=== PATIENT | female | born 1990 | race Hispanic/Latino ===

== ENCOUNTER 2020-03-13 19:30 | Emergency (ER) | payer SELFPAY ==
[~2020-03-13] VITALS: Ht 175.3 cm; Wt 74.8 kg
[2020-03-13] MEDS ORDERED: ACETAMINOPHEN 325 MG TAB PO ONE (20:15)
[2020-03-13] MEDS ORDERED: KETOROLAC TROMETHAMINE 30 MG/ML VIAL IV ONE (20:15)
[2020-03-13] MEDS ORDERED: DEXAMETHASONE SOD PHOS 10 MG/1 ML VIAL IV ONE (20:15)
[2020-03-13] MEDS ORDERED: ONDANSETRON HCL INJ 2MG/ML 2ML 2 MG/ML VIAL IV ONE (20:15)
[2020-03-13] MEDS ORDERED: SODIUM CHLORIDE 0.9% 1000ML 1,000 ML IV STA (20:15)
[2020-03-13] MEDS ORDERED: THERAFLU MS SE1 EACH PO (21:07)
[2020-03-13] MEDS ORDERED: ZOLPIDEM TARTRAT5 MG PO (21:07)
[2020-03-13] MEDS ORDERED: PROMETHAZINE HC25 M1 PO (21:07)
[2020-03-13] MEDS ORDERED: ONDANSETRON HCL INJ 2MG/ML 2ML 2 MG/ML VIAL ONE (21:14)
[2020-03-13] MEDS ORDERED: SODIUM CHLORIDE 0.9% 1000ML 1,000 ML ONE (21:14)
[2020-03-13] MEDS ORDERED: ACETAMINOPHEN 325 MG TAB ONE (21:14)
[2020-03-13] MEDS ORDERED: DEXAMETHASONE SOD PHOS INJ 4 MG/ML VIAL ONE (21:14)
[2020-03-13] MEDS ORDERED: KETOROLAC TROMETHAMINE 30 MG/ML VIAL ONE (21:14)
[2020-03-13] MEDS ORDERED: DIPHENHYDRAMINE HCL INJ 50 MG/ML VIAL IV ONE (22:00)
[2020-03-13] MEDS ORDERED: METOCLOPRAMIDE HCL 10 MG/2ML VIAL IV ONE (22:00)
[2020-03-13] MEDS ORDERED: DIPHENHYDRAMINE HCL INJ 50 MG/ML VIAL ONE (22:17)
[2020-03-13] MEDS ORDERED: METOCLOPRAMIDE HCL 10 MG/2ML VIAL ONE (22:17)
== END 2020-03-13 23:05 | disposition home or self-care (01) ==
LOC: FSED 20:00
DX: R51.9 Headache, unspecified (principal); B34.9 Viral infection, unspecified; R50.9 Fever, unspecified
CPT/HCPCS: 36415; 70450; 80053; 83518; 85025; 85651; 99283; J1100; J1200; J1885; J2405; J2765; J7030

== ENCOUNTER 2020-03-15 14:32 | Emergency (ER) | payer SELFPAY ==
[~2020-03-15] VITALS: Ht 175.3 cm; Wt 74.8 kg
[~2020-03-15 14:32] MED LIST: PROMETHAZINE HC25 M1 PO; THERAFLU MS SE1 EACH PO; ZOLPIDEM TARTRAT5 MG PO
[2020-03-15] MEDS ORDERED: CEFTRIAXONE SOD 1 GM VIAL IM ONE (14:45)
[2020-03-15] MEDS ORDERED: AUGMENTIN 875-1 EACH PO (14:55)
[2020-03-15] MEDS ORDERED: LIDOCAINE HCL 1% LOCAL INJ 20 ML VIAL ONE (14:56)
== END 2020-03-15 15:12 | disposition home or self-care (01) ==
LOC: FSED 14:45
DX: R51.9 Headache, unspecified (principal); H66.93 Otitis media, unspecified, bilateral; B34.9 Viral infection, unspecified
CPT/HCPCS: 99283; J0696; J2001

== ENCOUNTER 2020-03-15 20:21 | Emergency (ER) | payer SELFPAY ==
[~2020-03-15] VITALS: Ht 175.3 cm; Wt 74.8 kg
[~2020-03-15 20:21] MED LIST changes: +AUGMENTIN 875-1 EACH PO
[2020-03-15] MEDS ORDERED: SODIUM CHLORIDE 0.9% 1000ML 1,000 ML IV STA ×2 (20:29→20:31)
[2020-03-15] MEDS ORDERED: ASPIRIN 81 MG CHEW TAB PO ONE (20:30)
[2020-03-15] MEDS ORDERED: ACETAMINOPHEN 325 MG TAB PO STA (20:38)
[2020-03-15 20:58] LABS: BASOPHILS % 0.5 % (0.0-1.0); EOSINOPHILS % 0.6 % (0.0-6.0); HEMATOCRIT 36.6 % (34.2-44.1); LYMPHOCYTES # (AUTO) 2.9 (1.0-3.2); LYMPHOCYTES % 44.5 % (18.0-39.1); MEAN CORPUSCULAR HEMOGLOBIN 31.3 pg (28-32); MEAN CORPUSCULAR HGB CONC 32.8 g/dL (31-35); MEAN CORPUSCULAR VOLUME 95.3 fL (81-99); MONOCYTES # (AUTO) 0.8 (0.2-0.8); MONOCYTES % 11.5 % (4.4-11.3); NEUTROPHILS # (AUTO) 2.8 (2.1-6.9); NEUTROPHILS % 42.7 % (38.7-80.0); PLATELET COUNT 208 x10e3/uL (140-360); RED BLOOD COUNT 3.84 x10e6/uL (3.6-5.1); RED CELL DISTRIBUTION WIDTH 11.9 % (11.7-14.4)
[2020-03-15] MEDS ORDERED: ACETAMINOPHEN 325 MG TAB ONE (21:02)
[2020-03-15 21:16] LABS: ALANINE AMINOTRANSFERASE 13 IU/L (0-55); ALBUMIN 3.7 g/dL (3.5-5.0); ALBUMIN/GLOBULIN RATIO 1.4 (0.8-2.0); ALKALINE PHOSPHATASE 30 IU/L (40-150); ANION GAP 11.6 mmol/L (8-16); BLOOD UREA NITROGEN 7 mg/dL (7-26); BUN/CREATININE RATIO 9 (6-25); CALCIUM 8.2 mg/dL (8.4-10.2); CARBON DIOXIDE 29 mmol/L (22-29); CHLORIDE 103 mmol/L (98-107); CREATINE KINASE 47 IU/L (29-168); CREATININE, SERUM 0.81 mg/dL (0.57-1.11); EST GLOMERULAR FILTRATION RATE > 60 ML/MIN (60-); GLUCOSE 90 mg/dL (74-118); POTASSIUM 3.6 mmol/L (3.5-5.1); SODIUM 140 mmol/L (136-145)
[2020-03-15] MEDS ORDERED: KETOROLAC TROMETHAMINE 30 MG/ML VIAL IV STA (21:35)
[2020-03-15 22:41] VITALS: BP 112/69
== END 2020-03-15 22:50 | disposition home or self-care (01) ==
LOC: ER 20:32
DX: H66.92 Otitis media, unspecified, left ear (principal); M54.2 Cervicalgia; R51.9 Headache, unspecified; Z20.828 Contact with and (suspected) exposure to other viral communicable diseases
CPT/HCPCS: 36415; 70450; 71045; 80053; 82550; 82553; 83880; 84484; 85025; 99284; J1885; J7030; U0002

== ENCOUNTER 2024-10-21 02:16 | Emergency (ER) | payer OTHER ==
[~2024-10-21] VITALS: Ht 175.3 cm; Wt 85.3 kg
[2024-10-21 05:29] VITALS: PULSE 59; RESP 16; TEMP 98
[2024-10-21 05:39] VITALS: BP 102/58; PULSE 59; RESP 16; TEMP 98; O2SAT 99
== END 2024-10-21 05:43 | disposition home or self-care (01) ==
LOC: FSED 02:28
DX: R55 Syncope and collapse (principal); H93.11 Tinnitus, right ear
CPT/HCPCS: 80053; 81003; 81025; 84484; 85025; 85379; 93005; 99284